=== PATIENT | female | born 2000 | race Caucasian/White ===

== ENCOUNTER 2024-12-04 10:06 | Emergency (ER) | payer SELFPAY ==
[~2024-12-04] VITALS: Ht 170.2 cm; Wt 47.6 kg
[2024-12-04 10:16] VITALS: TEMP 98.4
[2024-12-04 10:57] LABS: CALCIUM, SERUM 9.5 mg/dL (8.5-10.1); CREATININE 0.8 mg/dL (0.6-1.3); SODIUM SERUM 136.0 mmol/L (136-145); UREA NITROGEN, BLOOD 9.0 mg/dL (7-18)
[2024-12-04 10:58] LABS: PLATELET COUNT (AUTO) 206 K/uL (150-450); RED BLOOD CELL COUNT(AUTO) 4.04 MIL/uL (4.0-5.2); RED CELL DISTRIBUTION WIDTH 13.0 % (11.5-15.0); WHITE BLOOD COUNT (AUTO) 10.6 K/uL (4.3-11.0)
[2024-12-04] MEDS ORDERED: IOHEXOL-300 100 ML VIAL IV ONE ×2 (10:58→12:06)
[2024-12-04] MEDS ORDERED: IV NS 0.9% 0 ML IV ONE (10:58)
[2024-12-04 11:14] LABS: PREGNANCY TEST URINE QUAL NEGATIVE (NEGATIVE)
[2024-12-04] MEDS ORDERED: PIPERACI/TAZO 3.375GM/D5W 50ML PB IV ONE (11:14)
[2024-12-04] MEDS: PIPERACILLIN /TAZOBACTAM 3.375 G in IV D5W 50 ML IV ONE (11:27)
[2024-12-04] MEDS ORDERED: IV NS 0.9% 250 ML IV ONE (12:07)
[2024-12-04] MEDS ORDERED: CT SWABBABLE VALVE TRANS SET 1 EA INFUS.SET MC ONE (12:07)
[2024-12-04] MEDS ORDERED: LIDOCAINE HCL/MPF 1% 30 ML VIAL IJ ONE (12:54)
[2024-12-04] MEDS ORDERED: DOCU-141 PO (13:30)
[2024-12-04] MEDS ORDERED: AMOX-430 PO (13:30)
[2024-12-04 14:00] VITALS: BP 120/85; O2SAT 100
== END 2024-12-04 14:01 | disposition home or self-care (01) ==
LOC: ER 10:15
DX: K61.0 Anal abscess (principal); K59.00 Constipation, unspecified
CPT/HCPCS: 46050; 99285; 74177; 96365; 85025; 80048; 36415; 84703 ×2; J2543 ×2; J7060; J7050; A6407; J3490; Q9967

== ENCOUNTER 2024-12-07 08:30 | Emergency (ER) | payer SELFPAY ==
[~2024-12-07] VITALS: Ht 167.6 cm; Wt 47.6 kg
[~2024-12-07 08:30] MED LIST: AMOX-430 PO; DOCU-141 PO
[2024-12-07 08:34] VITALS: BP 102/54; TEMP 98.1
[2024-12-07 08:50] VITALS: O2SAT 97
== END 2024-12-07 08:51 | disposition home or self-care (01) ==
LOC: ER 08:31
DX: L02.31 Cutaneous abscess of buttock (principal); K61.0 Anal abscess